=== PATIENT | female | born 1935 | race Two or more races ===

== ENCOUNTER 2019-10-04 20:57 | Inpatient (IN) | payer MEDICARE, OTHER ==
[~2019-10-04] VITALS: Ht 157.5 cm; Wt 77.1 kg
--- NOTE | 2019-10-04 20:57 | NUR ---
PT [id number] FROM HOME C/O FEVER AND DRY COUGH X2 DAYS, GEN WEAKNESS, PT IS AAOX3 [place] IRISH SPEAKING ONLY, HOOKED TO WOOD CABINET FINISHER, KEPT RESTED AND COMFORTABLE, WILL CONTINUE TO MONITOR.
--- NOTE | 2019-10-04 21:00 | NUR ---
SEEN AND EXAMINED BY
--- NOTE | 2019-10-04 21:05 | NUR ---
IV LINE ESTABLISHED BLOOD DRAWN AND SENT TO LAB.
[2019-10-04] MEDS ORDERED: VANCOMYCIN 1 GM VIAL ONE (21:15)
[2019-10-04] MEDS ORDERED: PIPERACILLIN /TAZOBACTAM 3.375 G VIAL IV ONE (21:16)
[2019-10-04] MEDS ORDERED: ACETAMINOPHEN ES 500 MG TABLET ONE (21:16)
--- NOTE | 2019-10-04 21:22 | NUR ---
ALEX (DAUGHTER) CONTACT INFORMATION: [phone]
[2019-10-04 21:24] LABS: BASOPHILS % (AUTO) 0.2 % (0.0-2.0); HEMATOCRIT 34 % (33-45); HEMOGLOBIN 11.1 g/dL (11.5-14.8); LYMPHOCYTES # (AUTO) 1.4 /CMM (0.8-4.8); LYMPHOCYTES % (AUTO) 5.8 % (20.0-44.0); MEAN CORPUSCULAR HGB CONC 32 g/dl (31.0-36.0); MEAN CORPUSCULAR VOLUME 91 fL (82-100); MONOCYTES # (AUTO) 1.8 /CMM (0.1-1.30); MONOCYTES % (AUTO) 7.4 % (2.0-12.0); NEUTROPHILS # (AUTO) 20.8 /CMM (1.8-8.9); NEUTROPHILS % (AUTO) 86.6 % (43.0-81.0); PLATELET COUNT (AUTO) 546 /CMM (150-450); RED BLOOD CELL COUNT(AUTO) 3.78 MIL/uL (4.0-5.2)
[2019-10-04] MEDS ORDERED: ACETAMINOPHEN ES 500 MG TABLET PO ONE (21:30)
[2019-10-04] MEDS ORDERED: PIPERACILLIN /TAZOBACTAM 3.375 G in IV D5W 50 ML IV ONE (21:30)
[2019-10-04] MEDS ORDERED: VANCOMYCIN 1 GM in IV D5W 250 ML IV ONE (21:30)
[2019-10-04] MEDS ORDERED: IV NS 0.9% 1,000 ML BAG IV ONE (21:30)
--- NOTE | 2019-10-04 21:37 | NUR ---
RSV AND NCOV TEST OBTAINED AND SENT TO LAB.
--- NOTE | 2019-10-04 21:37 | NUR ---
Flu swab sample sent to lab.
[2019-10-04 21:40] LABS: MAGNESIUM 1.7 mg/dL (1.8-2.4); PHOSPHORUS 2.2 mg/dL (2.5-4.9)
[2019-10-04 21:43] LABS: ALANINE AMINOTRANSFERASE 16 U/L (12-78); ALBUMIN 1.7 g/dL (3.4-5.0); ALKALINE PHOSPHATASE 100 U/L (46-116); ASPARTATE AMINOTRANSFERASE 20 U/L (15-37); BILIRUBIN,DIRECT 0.1 mg/dL (0.0-0.2); BILIRUBIN,TOTAL 0.4 mg/dL (0.2-1.0); CALCIUM, SERUM 7.6 mg/dL (8.5-10.1); CARBON DIOXIDE 22 mmol/L (21-32); CHLORIDE 102 mmol/L (98-107); CREATININE 1.4 mg/dL (0.6-1.3); GLUCOSE 118 mg/dL (74-106); POTASSIUM 3.2 mmol/L (3.5-5.1); SODIUM SERUM 135 mmol/L (136-145); TOTAL PROTEIN, SERUM 5.1 g/dL (6.4-8.2); UREA NITROGEN, BLOOD 20 mg/dL (7-18)
--- NOTE | 2019-10-04 21:47 | NUR ---
xray at [facility]
[2019-10-04 21:51] LABS: APPEARANCE,URINE CLEAR (CLEAR); BILIRUBIN,URINE NEGATIVE (NEGATIVE); BLOOD, URINE NEGATIVE Ery/uL (NEGATIVE); COLOR,URINE YELLOW (YELLOW); KETONES,URINE NEGATIVE (NEGATIVE); LEUKOCYTE ESTERASE ,URINE NEGATIVE (NEGATIVE); NITRITE, URINE NEGATIVE (NEGATIVE); PH,URINE 5.5 (5.0-8.0); PROTEIN,URINE 30 mg/dl (NEGATIVE); UGLUCOSE NEGATIVE (NEGATIVE)
[2019-10-04] MEDS ORDERED: IOHEXOL-300 100 ML VIAL IV ONE (21:56)
[2019-10-04 22:02] LABS: BACTERIA,URINE None seen /HPF (None Seen); MUCUS,URINE RARE /LPF (None Seen); RBC,URINE 0-2 /HPF (0-2); SQUAMOUS EPITHELIAL CELL,UR 0-2 /HPF (None Seen); WBC,URINE 0-2 /HPF (0-3)
--- NOTE | 2019-10-04 22:03 | NUR ---
PATIENT TAKEN TO CT.
--- NOTE | 2019-10-04 22:07 | NUR ---
ROOM GIVEN 115-2
--- NOTE | 2019-10-04 22:28 | NUR ---
RETURNED FROM CT.
--- NOTE | 2019-10-04 22:53 | NUR ---
REPORT GIVEN TO ED WONG FOR RUDDY.
--- NOTE | 2019-10-04 23:10 | NUR ---
S/W GRANDSON. INFORMED HIM PT IS BEING PREPPED FOR TRANSFER TO [facility] AND TO CALL MAIN LINE IN 45 MIN TO BE DIRECTED TO UNIT.
--- NOTE | 2019-10-04 23:30 | NUR ---
TELE/ RN ADMITTING NOTES PATIENT ARRIVED VIA GURNEY, ACCOMPANIED BY ER STAFF; PATIENT AWAKE, A/O X2-3, FRISIAN SPEAKING; BREATHING EVEN AND UNLABORED; NO SOB NOTED; PATIENT IS NOT COUGHING AT THE MOMENT; PATIENT TOLERATING ROOM AIR WELL; R AC #18 INTACT AND PATENT; FLUSHING WELL, NO REDNESS OR INFILTRATION NOTED; UNABLE TO DO SKIN ASSESSMENT; COLLECTED MEDICAL HX VIA PHONE CALL FROM CELESTE JOHNSON. SAFETY PRECAUTIONS IMPLEMENTED; BED LOCKED IN LOW POSITION, BILATERAL UPPER SIDE RAILS X2; CALL LIGHT WITHIN REACH, WILL CONTINUE TO MONITOR Addendum: 10/04/19 at 2357 by AMILCAR PAGAN RN TELE MONITOR ATTACHED READING SINUS TACH HR RANGES FROM 111 - 135S; WILL CONTINUE TO MONITOR
[2019-10-04 23:35] VITALS: BP 136/82
[2019-10-05] VITALS (7 sets, daily range): BP systolic 100–136; BP diastolic 57–82
[2019-10-05] MEDS ORDERED: ONDANSETRON HCL/PF 4 MG/2 ML VIAL IVP PRN
[2019-10-05] MEDS ORDERED: Z GUARD REMEDY 2 OZ OINT TP PRN
[2019-10-05] MEDS ORDERED: HYDROCODONE/APAP 5/325MG 1 EACH TABLET PO PRN
[2019-10-05] MEDS ORDERED: MAG HYDROX/AL HYDROX/SIMETH 30 ML UDC PO PRN
[2019-10-05] MEDS ORDERED: MAGNESIUM HYDROXIDE 30 ML UDC PO PRN
[2019-10-05] MEDS ORDERED: ZOLPIDEM TARTRATE 5 MG TABLET PO PRN
[2019-10-05] MEDS ORDERED: ACETAMINOPHEN 325 MG TABLET PO PRN
--- NOTE | 2019-10-05 00:35 | NUR ---
TELE/RN NOTES AZITHROMYCIN IV NOT YET AVAILABLE; AWAITING FOR MEDICATION TO BE READY; ORDER FAXED TO NURSING SUP.
[2019-10-05] MEDS ORDERED: AZITHROMYCIN 500 MG VIAL ONE (01:32)
[2019-10-05] MEDS: AZITHROMYCIN 500 MG in IV D5W 250 ML IV SCH (01:40)
[2019-10-05] MEDS ORDERED: POTASSIUM CHLORIDE 10 MEQ/50 ML PREMIXED IVPB FOR PERIPHERAL LINE IV ONE (02:30)
[2019-10-05] MEDS ORDERED: ZOSYN IVPB 3.375 G in IV D5W 50ml IV ONE (03:15)
[2019-10-05] MEDS ORDERED: PIPERACILLIN /TAZOBACTAM 3.375 G VIAL IV ONE (03:40)
--- NOTE | 2019-10-05 04:20 | NUR ---
TELE/RN NOTES ZOSYN COMPLETED; PATIENT TOLERATED ZOSYN WELL; SECOND BAG OF KCL RUNNING;
[2019-10-05] MEDS ORDERED: POTASSIUM CL. PREMIX PERIPHER. 50 ML IV SCH ×2 (04:30→10:30)
--- NOTE | 2019-10-05 05:58 | NUR ---
EDITORIAL WRITER NOTES KCL IV STILL RUNNING; AWAITING COMPLETION PRIOR TO ADMINISTRATION OF FLAGYL; WILL CONTACT PHARMACY TO INPUT ORDER FOR LATER ADMINISTRATION; WILL CONTINUE TO MONITOR
--- NOTE | 2019-10-05 06:23 | NUR ---
NETWORK ENGINEERING ADVISOR CLOSING NOTES PATIENT SLEEPING IN BED COMFORTABLY; A/O X2-3, GERMAN SPEAKING; TOLERATING ROOM AIR WELL, BREATHING EVEN AND UNLABORED, NO SOB OR ACUTE RESPIRATORY DISTRESS NOTED AT THIS TIME; ISOLATION PRECAUTIONS MAINTAINED; TELE MONITOR ATTACHED; READS STACH WITH PACS, HR 106BPM; R AC #18 INTACT AND PATENT; FLUSHING WELL; NO S/S OF REDNESS OR INFILTRATION NOTED; KCL REPLACEMENT STILL INFUSING; FLAGYL DELAYED, WILL ENDORSE TO ONCOMING SHIFT. ALL NEEDS RENDERED; SAFETY PRECAUTIONS IN PLACE; BED LOCKED IN LOW POSITION; BILATERAL UPPER SIDE RAILS X2; CALL LIGHT WITHIN REACH; WILL ENDORSE RUDDY TO ONCOMING SHIFT
--- NOTE | 2019-10-05 06:24 | NUR ---
INFANT NANNY/ CLOSING NOTES NPO STATUS MAINTAINED
[2019-10-05 06:42] LABS: CALCIUM, SERUM 7.2 mg/dL (8.5-10.1); CARBON DIOXIDE 21 mmol/L (21-32); CHLORIDE 104 mmol/L (98-107); CREATININE 1.6 mg/dL (0.6-1.3); GLUCOSE 118 mg/dL (74-106); POTASSIUM 3.4 mmol/L (3.5-5.1); SODIUM SERUM 135 mmol/L (136-145); UREA NITROGEN, BLOOD 19 mg/dL (7-18)
[2019-10-05 06:52] LABS: ALANINE AMINOTRANSFERASE 11 U/L (12-78); ALBUMIN 1.5 g/dL (3.4-5.0); ALKALINE PHOSPHATASE 91 U/L (46-116); ASPARTATE AMINOTRANSFERASE 14 U/L (15-37); BILIRUBIN,TOTAL 0.4 mg/dL (0.2-1.0); MAGNESIUM 1.5 mg/dL (1.8-2.4); PHOSPHORUS 2.9 mg/dL (2.5-4.9); TOTAL PROTEIN, SERUM 4.5 g/dL (6.4-8.2)
[2019-10-05 07:02] LABS: CHOLESTEROL 72 mg/dL (<200); CREATINE KINASE, TOTAL 39 U/L (26-192); FERRITIN 171 ng/mL (8-388); HDL CHOLESTEROL 17 mg/dL (40-60); TRIGLYCERIDES 69 mg/dL (30-150)
[2019-10-05 07:20] LABS: LDL 45 mg/dL (0-99)
--- NOTE | 2019-10-05 07:20 | NUR ---
RN NOTES RECEIVED PATIENT IN BED RESTING COMFORTABLY IN MODERATE HIGH BACK REST. A/O X 2-3, BULGARIAN SPEAKING, NO SIGNS OF DISTRESS NOTED AT THIS TIME. IV ACCESS ON RAC #18, SL, PATENT AND INTACT, NPO FOR POSSIBLE ERCP. ON ISOLATION PRECAUTION TO R/O COVID, SAFETY MEASURES IN PLACE, BED IN LOWEST LOCKED POSITION WITH SIDE RAILS UP X2. CALL LIGHT WITHIN REACH. WILL CONTINUE TO MONITOR.
[2019-10-05] MEDS: METRONIDAZOLE 500MG/ NS 100ML 500 MG in PREMIX 1 EA IV SCH ×3 (07:42→19:03)
--- NOTE | 2019-10-05 08:34 | NUR ---
RT PT REFUSED ABG NO SOB SP02 > 94% RN AWARE ASK IRISH SPEAKING TO TRANSLATE
[2019-10-05] MEDS ORDERED: IV NS 0.9% 1,000 ML IV PRN (08:36)
[2019-10-05] MEDS: Magnesium 1GM/D5W 100ML PREMIX 100 ML IV SCH ×2 (09:19→15:13)
[2019-10-05] MEDS: ENOXAPARIN SODIUM 30 MG/0.3 ML DISP.SYRIN SQ SCH (09:23)
[2019-10-05] MEDS ORDERED: REPA2TAB10 PO (11:25)
[2019-10-05] MEDS ORDERED: PROP10TA68 PO (11:25)
[2019-10-05] MEDS ORDERED: HYDR200T4 PO (11:25)
[2019-10-05] MEDS ORDERED: METF-835 PO (11:25)
[2019-10-05] MEDS ORDERED: GABA-532 PO (11:25)
[2019-10-05] MEDS ORDERED: SERT25TA5 PO (11:25)
[2019-10-05] MEDS ORDERED: OXYC1TAB8 PO (11:25)
[2019-10-05] MEDS ORDERED: MEGE40TA5 PO (11:25)
[2019-10-05] MEDS ORDERED: VALSARTAN-HCTZ PO (11:25)
[2019-10-05] MEDS ORDERED: ESOM40CA52 PO (11:25)
[2019-10-05] MEDS: PIPERACILLIN /TAZOBACTAM 3.375 G in IV D5W 50 ML IV SCH ×4 (11:33→23:19)
--- NOTE | 2019-10-05 11:53 | NUR ---
RN NOTES PATIENT IS CONFUSED, PATIENT PULLED OUT HER IV. WILL TRY TO RE INSERT AGAIN. WILL CONTINUE TO MONITOR.
--- NOTE | 2019-10-05 13:27 | NUR ---
RN NOTES VANCOMYCIN ORAL MINNIE, NOT AVAILABLE, CALLED PHARMACY AND THEY SAID THEY WILL SEND IT IN FEW MINUTES, WILL F/U.
[2019-10-05] MEDS: VANCOMYCIN HCL 125 MG/2.5 ML ORAL.SUSP PO SCH ×3 (13:54→23:19)
--- NOTE | 2019-10-05 17:47 | NUR ---
RN NOTES PATIENT PULLED HER IV AGAIN, REMOVED THE LEADS FOR TELE MONITOR, REFUSED TO BE APPLIED AGAIN, MD MADE AWARE. WILL CONTINUE TO MONITOR.
--- NOTE | 2019-10-05 17:50 | NUR ---
RN NOTES SPOKE TO THE DAUGHTER COUPLE OF TIMES REGARDING THE PATIENT, THAT PATIENT IS NON-COMPLIANT AND KEEP REMOVING THE IV AND TELE MONITOR. DAUGHTER REFUSED ANY TYPE OF RESTRAINT. MD MADE AWARE. WILL CONTINUE TO MONITOR.
--- NOTE | 2019-10-05 18:39 | NUR ---
RN NOTES PATIENT IN BED RESTING COMFORTABLY IN MODERATE HIGH BACK REST. A/O X 2, CONFUSED, DIVEHI SPEAKING, IV ACCESS ON LEFT AC #20, SL, PATENT AND INTACT. ON ISOLATION PRECAUTION TO R/O COVID AND C.DIFF, PATIENT REMOVED HER TELE MONITOR, REFUSED TO BE PUT BACK. FAMILY AWARE. MD MADE AWARE, SAFETY MEASURES IN PLACE, BED IN LOWEST LOCKED POSITION WITH SIDE RAILS UP X2. CALL LIGHT WITHIN REACH. WILL ENDORSE TO DYE WEIGHER HELPER NURSE FOR RUDDY.
--- NOTE | 2019-10-05 19:05 | NUR ---
CLARIFICATION PATIENT IS NPO EXCEPT MEDS, NO FLUIDS GIVEN
--- NOTE | 2019-10-05 19:05 | NUR ---
RADIOLOGIC TECHNOLOGIST MAMMOGRAM OPENING NOTES RECEIVED PATIENT IN BED AWAKE ALERT AND ORIENTED X 1-2, NOTED WITH FORGETFULNESS, CONFUSION, REMOVING [employer] AIRSPACE OFFICER AND ATTEMPTING TO REMOVE IV SITE. IV SITE TO LEFT AC #20G INTACT AND PATENT AT THIS TIME, PATIENT HAS EPISODES OF ATTEMPTING TO GET OUT OF BED DESPITE REDIRECTION, BED ALARM IN PLACE, LOW BED AND LOCKED, SAFETY PRECAUTIONS IN PLACE, PER FAMILY ALEX DAUGHTER DOES NOT WANT TO TRY RESTRAINTS. PT IS FALL RISK. SAFETY PRECAUTIONS RENDERED.ORIENTED TO STAFF AND CALL LIGHT AND KEPT WITHIN REACH, FLUIDS AND PERINEAL CARE PROVIDED, REMAINS CLEAN. RESPIRATIONS EVEN AND UNLABORED WITH EQUAL RISE AND FALL OF CHEST, REMAINS FREE OF PAIN OR DISCOMFORT AT THIS TIME, ALL NEEDS ATTENDED , PATIENT IS DROPLET PRECAUTIONS FOR POSSIBLE COVID. WILL CONTINUE TO MONITOR.
--- NOTE | 2019-10-05 19:10 | NUR ---
CARDIAC TELE MONITOR AT TIMES SR AND ST HR 95
[2019-10-06] VITALS: BP 137/67
[2019-10-06] MEDS: METRONIDAZOLE 500MG/ NS 100ML 500 MG in PREMIX 1 EA IV SCH ×3 (00:17→12:50)
[2019-10-06] MEDS: AZITHROMYCIN 500 MG in IV D5W 250 ML IV SCH (01:46)
[2019-10-06 04:00] VITALS: BP 112/58
[2019-10-06] MEDS: PIPERACILLIN /TAZOBACTAM 3.375 G in IV D5W 50 ML IV SCH ×2 (05:39→11:36)
[2019-10-06] MEDS: VANCOMYCIN HCL 125 MG/2.5 ML ORAL.SUSP PO SCH ×2 (05:40→11:36)
[2019-10-06 06:33] LABS: BASOPHILS % (AUTO) 0.2 % (0.0-2.0); HEMATOCRIT 31 % (33-45); LYMPHOCYTES # (AUTO) 0.8 /CMM (0.8-4.8); LYMPHOCYTES % (AUTO) 6.3 % (20.0-44.0); MEAN CORPUSCULAR HGB CONC 33 g/dl (31.0-36.0); MEAN CORPUSCULAR VOLUME 89 fL (82-100); MONOCYTES # (AUTO) 0.7 /CMM (0.1-1.30); MONOCYTES % (AUTO) 5.2 % (2.0-12.0); NEUTROPHILS # (AUTO) 11.7 /CMM (1.8-8.9); NEUTROPHILS % (AUTO) 88.3 % (43.0-81.0); PLATELET COUNT (AUTO) 476 /CMM (150-450); RED BLOOD CELL COUNT(AUTO) 3.43 MIL/uL (4.0-5.2); WHITE BLOOD COUNT (AUTO) 13.2 K/uL (4.3-11.0)
--- NOTE | 2019-10-06 06:36 | NUR ---
SELLING MANAGER CLOSING NOTES PATIENT IN BED AWAKE ALERT AND ORIENTED X 1-2, NOTED WITH FORGETFULNESS, CONFUSION, REMOVING RESUME SPECIALIST AND ATTEMPTING TO REMOVE IV SITE THROUGHOUT SHIFT, REMOVED X 4 TIMES. IV SITE TO RIGHT FA #22G INTACT AND PATENT AT THIS TIME, PATIENT HAD EPISODES OF ATTEMPTING TO GET OUT OF BED DESPITE REDIRECTION, BED ALARM IN PLACE, LOW BED AND LOCKED, SAFETY PRECAUTIONS IN PLACE, PER FAMILY ALEX DAUGHTER DOES NOT WANT TO TRY RESTRAINTS. PT IS FALL RISK AND REMOVING MEDICAL TUBING. SAFETY PRECAUTIONS RENDERED.CALL LIGHT KEPT WITHIN REACH, PERINEAL CARE PROVIDED, REMAINS CLEAN. RESPIRATIONS EVEN AND UNLABORED WITH EQUAL RISE AND FALL OF CHEST, REMAINS FREE OF PAIN OR DISCOMFORT AT THIS TIME, BEDSIDE COMMODE PROVIDED AND HAD X 1 BM, ALL NEEDS ATTENDED , PATIENT IS DROPLET PRECAUTIONS FOR POSSIBLE COVID. WILL CONTINUE TO MONITOR AND ENDORSE TO NEX SHIFT REMAINS AFEBRILE, NO SOB. NO FURTHER CHANGES NOTED, VS WNL.
--- NOTE | 2019-10-06 06:40 | NUR ---
CARDIAC TELE MONITOR PLACED SR 84
[2019-10-06 06:49] LABS: ALANINE AMINOTRANSFERASE 12 U/L (12-78); ALKALINE PHOSPHATASE 86 U/L (46-116); ASPARTATE AMINOTRANSFERASE 17 U/L (15-37); BILIRUBIN,TOTAL 0.3 mg/dL (0.2-1.0); CALCIUM, SERUM 7.9 mg/dL (8.5-10.1); CARBON DIOXIDE 21 mmol/L (21-32); CHLORIDE 106 mmol/L (98-107); CREATININE 1.4 mg/dL (0.6-1.3); GLUCOSE 98 mg/dL (74-106); MAGNESIUM 2.3 mg/dL (1.8-2.4); PHOSPHORUS 2.9 mg/dL (2.5-4.9); POTASSIUM 3.3 mmol/L (3.5-5.1); SODIUM SERUM 138 mmol/L (136-145); TOTAL PROTEIN, SERUM 4.5 g/dL (6.4-8.2); UREA NITROGEN, BLOOD 19 mg/dL (7-18)
[2019-10-06 06:52] LABS: ALBUMIN 1.5 g/dL (3.4-5.0)
[2019-10-06 06:55] LABS: FERRITIN 188 ng/mL (8-388)
--- NOTE | 2019-10-06 07:36 | NUR ---
RN OPENING NOTE RECEIVED PATIENT IN BED, A/O X2, RESTLESS TRYING TO GET OUT OF BED. PATIENT IS CONFUSED, PER PM NURSE PT PULLED OUT IV DURING THE NIGHT AND KEEPS TRYING TO GET OUT OF BED. FREQUENT REORIENTATION REQUIRED. IV #22 ON RIGHT FOREARM IS INTACT, PATENT AND FLUSHED WELL. NS RUNNING ORDERED. BED IS LOCKED, LOWERED, AND ALARM SET TO HIGHEST SENSITIVITY. FAMILY IS REFUSING TO TRY RESTRAINING THE PATIENT FOR PT SAFETY. SAFETY MAINTAINED, CALL LIGHT WITHIN REACH, WILL CONTINUE TO MONITOR CLOSELY.
[2019-10-06 08:00] VITALS: BP 128/76
[2019-10-06] MEDS: ENOXAPARIN SODIUM 30 MG/0.3 ML DISP.SYRIN SQ SCH (09:00)
[2019-10-06] MEDS ORDERED: POTASSIUM CHLORIDE 20 MEQ TAB.PRT.SR PO SCH (10:00)
--- NOTE | 2019-10-06 10:00 | NUR ---
RN NOTE PT IN STABLE CONDITION. O2 SATURATION AT 100%. PATIENT SAFETY MAINTAINED, CALL LIGHT WITHIN REACH, CONTINUING CARE.
[2019-10-06] MEDS ORDERED: POTASSIUM CHLORIDE 20 MEQ TAB.PRT.SR PO ONE (11:00)
[2019-10-06 11:48] VITALS: BP 128/76
[2019-10-06 12:00] VITALS: BP_SYST 128; BP_SYST 130; BP_DIAS 72; BP_DIAS 73
--- NOTE | 2019-10-06 12:00 | NUR ---
RN NOTE PT IN STABLE CONDITION. O2 SATURATION AT 98%. PATIENT SAFETY MAINTAINED, CALL LIGHT WITHIN REACH, CONTINUING CARE.
[2019-10-06] MEDS ORDERED: VANC125C11 PO (12:43)
[2019-10-06] MEDS ORDERED: METR500P3 IV (12:43)
--- NOTE | 2019-10-06 14:00 | NUR ---
RN NOTE PT IN STABLE CONDITION. O2 SATURATION AT 100%. PATIENT SAFETY MAINTAINED, CALL LIGHT WITHIN REACH, CONTINUING CARE. C DIFF RESULTS CAME BACK POSITIVE. PAGED MD AVILA, NO CALL BACK. DISCHARGE ORDERS ARE IN. WILL CONTINUE TO MONITOR.
--- NOTE | 2019-10-06 16:03 | NUR ---
RN NOTE PT IN STABLE CONDITION. O2 SATURATION AT 100%. PATIENT SAFETY MAINTAINED, CALL LIGHT WITHIN REACH, CONTINUING CARE. DISCHARGE PAPERWORK COMPLETE, FAMILY IS AWARE, [facility] SCHEDULED AT 1630.
--- NOTE | 2019-10-06 17:00 | NUR ---
RN NOTE PATIENT IN STABLE CONDITION, DISCHARGED HOME, PICKED UP VIA AMBULANCE, REPORT GIVEN TO PARAMEDICS. FAMILY IS AWARE THAT THE PATIENT IS ON THE WAY. DISCHARGE INSTRUCTIONS WERE PROVIDED TO THE FAMILY, DAUGHTER KAITLIN. PATIENT SAFETY WAS MAINTAINED, ISOLATION WAS OBSERVED, IALL SCHEDULED MEDICATIONS ADMINISTERED, NEW IV 20 GAUGE WAS PUT IN PRIOR TO DISCHARGE FOR HOME HEALTH NURSE TO ADMINISTER ANTIBIOTICS.
== END 2019-10-06 17:15 | disposition home health service (06) | DRG 371 ==
LOC: ER 20:58 → TELE1 22:11
PROVIDERS: ADMIT Nurse Practitioner Acute Care; ATTEND Family Medicine
DX: A04.72 Enterocolitis due to Clostridium difficile, not specified as recurrent (principal); J12.9 Viral pneumonia, unspecified; E43 Unspecified severe protein-calorie malnutrition; N17.0 Acute kidney failure with tubular necrosis; M80.88XA Other osteoporosis with current pathological fracture, vertebra(e), initial encounter for fracture; F32.9 Major depressive disorder, single episode, unspecified; I10 Essential (primary) hypertension; F03.90 Unspecified dementia, unspecified severity, without behavioral disturbance, psychotic disturbance, mood disturbance, and anxiety; D63.8 Anemia in other chronic diseases classified elsewhere; G89.29 Other chronic pain; E83.42 Hypomagnesemia; I25.10 Atherosclerotic heart disease of native coronary artery without angina pectoris; E87.6 Hypokalemia; E86.1 Hypovolemia; M48.061 Spinal stenosis, lumbar region without neurogenic claudication; Z68.31 Body mass index [BMI] 31.0-31.9, adult; R79.89 Other specified abnormal findings of blood chemistry; K80.20 Calculus of gallbladder without cholecystitis without obstruction; D72.829 Elevated white blood cell count, unspecified
CPT/HCPCS: 36415; 71045-TC; 71260-TC; 72132-TC; 76705-TC; 80048-TC; 80053-TC; 80061-TC; 80076-TC; 81000-TC; 82550-TC; 82728-TC; 83605-TC; 83615-TC; 83735-TC; 84100-TC; 84484-TC; 85025-TC; 85652-TC; 85730-TC; 86140-TC; 86803; 87040-TC; 87081-TC; 87086-TC; 87806; 92521; 93307-TC; A4216; G0378; J0456; J2543; J3370; J3475; J3480; J3490; J7030; J7040; J7060; Q9967

== ENCOUNTER 2020-04-09 21:12 | Inpatient (IN) | payer MEDICARE, OTHER ==
[~2020-04-09] VITALS: Ht 160 cm; Wt 54.9 kg
[2020-04-09 00:30] VITALS: BP 130/78
[~2020-04-09 21:12] MED LIST: ESOM40CA52 PO; GABA-532 PO; HYDR200T4 PO; MEGE40TA5 PO; METF-835 PO; METR500P3 IV; OXYC1TAB8 PO; PROP10TA68 PO; REPA2TAB10 PO; SERT25TA5 PO; VALSARTAN-HCTZ PO; VANC125C11 PO
--- NOTE | 2020-04-09 21:15 | NUR ---
PT BIBRA FROM HOME. PER RA, PT MORE ALTERED THAN NORMAL, HX OF DEMENTIA. PT AWAKE, CONFUSED. VITAL SIGNS STABLE. RESPIRATIONS EVEN AND UNLABORED. SKIN INTACT. NO ACUTE DISTRESS NOTED AT THIS TIME. PLACED IN GOWN AND ON CONTINUOUS AUTOMATIC FABRIC CUTTER AND PULSE OX, WILL CONTINUE TO MONITOR
[2020-04-09] MEDS ORDERED: LORAZEPAM INJ 2 MG/ML VIAL ONE (21:23)
--- NOTE | 2020-04-09 21:26 | NUR ---
IV INITIATED RAC 20G. LABS DRAWN FROM SITE. GRADER MEAT AT BEDSIDE FOR COLLECTION. IV INTACT AND PATENT, PLACED ON SALINE LOCK
[2020-04-09] MEDS ORDERED: LORAZEPAM INJ 2 MG/ML VIAL IV ONE (21:30)
--- NOTE | 2020-04-09 21:30 | NUR ---
UNABLE TO OBTAIN EKG DUE TO PATIENT MOVING AND AMS. MADE AWARE
--- NOTE | 2020-04-09 21:37 | NUR ---
URINE COLLECTED AND SENT TO LAB
--- NOTE | 2020-04-09 21:37 | NUR ---
gail salazar [phone] or [phone]
[2020-04-09] MEDS ORDERED: IV NS 0.9% 1,000 ML BAG IV ONE (22:00)
[2020-04-09 22:02] LABS: BASOPHILS # (AUTO) 0.1 /CMM (0.0-0.2); HEMATOCRIT 37 % (33-45); HEMOGLOBIN 12.3 g/dL (11.5-14.8); LYMPHOCYTES # (AUTO) 3.5 /CMM (0.8-4.8); LYMPHOCYTES % (AUTO) 47.2 % (20.0-44.0); MEAN CORPUSCULAR HGB CONC 33 g/dl (31.0-36.0); MEAN CORPUSCULAR VOLUME 94 fL (82-100); MONOCYTES # (AUTO) 0.5 /CMM (0.1-1.30); MONOCYTES % (AUTO) 6.9 % (2.0-12.0); NEUTROPHILS # (AUTO) 3.3 /CMM (1.8-8.9); NEUTROPHILS % (AUTO) 44.9 % (43.0-81.0); PLATELET COUNT (AUTO) 326 /CMM (150-450); RED BLOOD CELL COUNT(AUTO) 3.93 MIL/uL (4.0-5.2); WHITE BLOOD COUNT (AUTO) 7.4 K/uL (4.3-11.0)
--- NOTE | 2020-04-09 22:03 | NUR ---
RADIOLOGY AT BEDSIDE FOR CXR
[2020-04-09 22:05] LABS: BILIRUBIN,URINE SMALL (NEGATIVE); BLOOD, URINE NEGATIVE Ery/uL (NEGATIVE); COLOR,URINE YELLOW (YELLOW); KETONES,URINE NEGATIVE (NEGATIVE); LEUKOCYTE ESTERASE ,URINE MODERATE (NEGATIVE); NITRITE, URINE NEGATIVE (NEGATIVE); PROTEIN,URINE NEGATIVE (NEGATIVE); UGLUCOSE NEGATIVE (NEGATIVE); UROBILINOGEN,URINE 0.2 EU/dL (0.2)
[2020-04-09 22:11] LABS: ACETAMINOPHEN 3 ug/ml (10-30); ALANINE AMINOTRANSFERASE 18 U/L (12-78); ALBUMIN 2.7 g/dL (3.4-5.0); ALCOHOL, BLOOD < 3 mg/dL (0-0); ALKALINE PHOSPHATASE 117 U/L (46-116); ASPARTATE AMINOTRANSFERASE 31 U/L (15-37); BILIRUBIN,DIRECT 0.2 mg/dL (0.0-0.2); BILIRUBIN,TOTAL 0.5 mg/dL (0.2-1.0); CALCIUM, SERUM 8.9 mg/dL (8.5-10.1); CARBON DIOXIDE 26 mmol/L (21-32); CHLORIDE 103 mmol/L (98-107); CREATININE 1.3 mg/dL (0.6-1.3); GLUCOSE 96 mg/dL (74-106); POTASSIUM 3.8 mmol/L (3.5-5.1); SODIUM SERUM 138 mmol/L (136-145); TOTAL PROTEIN, SERUM 6.4 g/dL (6.4-8.2); UREA NITROGEN, BLOOD 14 mg/dL (7-18)
[2020-04-09] MEDS ORDERED: HALOPERIDOL LACTATE INJ 5 MG/ML VIAL ONE (22:19)
--- NOTE | 2020-04-09 22:25 | NUR ---
COVID SWAB COLLECTED, CALLED LAB FOR TITLE AGENT
[2020-04-09 22:29] LABS: SALICYLATE < 2.8 mg/dL (2.8-20.0)
[2020-04-09] MEDS ORDERED: HALOPERIDOL LACTATE INJ 5 MG/ML VIAL IM ONE (22:30)
[2020-04-09 22:55] LABS: APPEARANCE,URINE SLIGHTLY CLOUDY (CLEAR)
[2020-04-09 22:57] LABS: BACTERIA,URINE Many /HPF (None Seen); RBC,URINE 0-2 /HPF (0-2); SQUAMOUS EPITHELIAL CELL,UR Few /HPF (None Seen)
--- NOTE | 2020-04-09 22:58 | NUR ---
PER DR. LEIVA, BLOOD CULTURES NOT NEEDED PRIOR TO ROCEPHIN ADMINISTRATION. WILL MEDICATE PT PER MD ORDER.
[2020-04-09] MEDS ORDERED: CEFTRIAXONE 1GM BAG (ER ONLY) 50 ML IV ONE (22:59)
[2020-04-09] MEDS ORDERED: CEFTRIAXONE 1GM BAG (ER ONLY) 1 GM/50 ML PIGGYBACK IV ONE (23:00)
--- NOTE | 2020-04-09 23:18 | NUR ---
DR. RODRIGUEZ AT BEDSIDE FOR EVALUATION
[2020-04-09] MEDS ORDERED: oxyCODONE/APAP (5/325 MG) 1 UDTAB TABLET PO PRN (23:30)
[2020-04-10] MEDS ORDERED: ACETAMINOPHEN 325 MG TABLET PO PRN
[2020-04-10] MEDS ORDERED: Z GUARD REMEDY 2 OZ OINT TP PRN
[2020-04-10] MEDS ORDERED: MAGNESIUM HYDROXIDE 30 ML UDC PO PRN
[2020-04-10] MEDS ORDERED: ONDANSETRON HCL/PF 4 MG/2 ML VIAL IVP PRN
[2020-04-10] MEDS ORDERED: MAG HYDROX/AL HYDROX/SIMETH 30 ML UDC PO PRN
--- NOTE | 2020-04-10 00:22 | NUR ---
REPORT GIVEN TO MARVIN ALTAMIRANO FOR RUDDY
--- NOTE | 2020-04-10 00:25 | NUR ---
GUTTER HANGER NOTES Received patient from ER via [facility] accompanied by ER staff. Transferred to bed comfortably. Admission routine done. Skin assessment done, intact skin noted. Admission orders noted and carried out. Kept on bed clean, dry and comfortable. Spoke to daughter Yolanda. Will continue to monitor accordingly.
--- NOTE | 2020-04-10 00:36 | NUR ---
PT TRANSFERRED TO MS BED [facility]IA [facility] IN STABLE CONDITION
[2020-04-10] MEDS: IV NS 0.9% 1,000 ML IV PRN ×2 (00:54→22:43)
[2020-04-10] MEDS: ENOXAPARIN SODIUM 30 MG/0.3 ML DISP.SYRIN SQ SCH ×2 (00:56→23:22)
[2020-04-10 03:20] VITALS: BP 130/78
--- NOTE | 2020-04-10 06:22 | NUR ---
RN CLOSING NOTES Pt asleep on bed. No new complaints/unusualities noted. Due meds given as ordered. All nursing needs attended. Kept on bed clean, dry and comfortable. Endorsed.
[2020-04-10 08:00] VITALS: BP 132/82
--- NOTE | 2020-04-10 08:00 | NUR ---
RN Opening Note Patient received in bed, sleeping, able to responds all stimuli. Does no appears pain or discomfort, skin is worm to touch, keep clean/dry, intact IV site on right AC 20 g with running NS at 75LPM. Respiratory even and unlabored on room air, no distress observed. Keep locked bed with lowest position and elevated HOB for ensure airway and aspiration precaution. Call light within reach, will continue to monitor.
[2020-04-10 08:28] LABS: BASOPHILS % (AUTO) 0.8 % (0.0-2.0); EOSINOPHILS % (AUTO) 0.1 % (0.0-6.0); HEMATOCRIT 31 % (33-45); HEMOGLOBIN 10.1 g/dL (11.5-14.8); LYMPHOCYTES # (AUTO) 2.1 /CMM (0.8-4.8); LYMPHOCYTES % (AUTO) 43.6 % (20.0-44.0); MEAN CORPUSCULAR HGB CONC 33 g/dl (31.0-36.0); MEAN CORPUSCULAR VOLUME 96 fL (82-100); MONOCYTES # (AUTO) 0.4 /CMM (0.1-1.30); MONOCYTES % (AUTO) 7.8 % (2.0-12.0); NEUTROPHILS # (AUTO) 2.3 /CMM (1.8-8.9); NEUTROPHILS % (AUTO) 47.7 % (43.0-81.0); PLATELET COUNT (AUTO) 193 /CMM (150-450); WHITE BLOOD COUNT (AUTO) 4.8 K/uL (4.3-11.0)
[2020-04-10] MEDS: SERTRALINE HCL 25 MG TABLET PO SCH (09:00)
[2020-04-10] MEDS: PROPRANOLOL HCL 10 MG TABLET PO SCH (09:00)
[2020-04-10] MEDS: GABAPENTIN 100 MG CAPSULE PO SCH (09:00)
[2020-04-10] MEDS: MEGESTROL ACETATE 40 MG TABLET PO SCH (09:00)
[2020-04-10] MEDS: HYDROXYCHLOROQUINE 200 MG TABLET PO SCH ×2 (09:00→17:50)
[2020-04-10 09:02] LABS: CALCIUM, SERUM 7.9 mg/dL (8.5-10.1); CREATININE 1.1 mg/dL (0.6-1.3); PHOSPHORUS 3.5 mg/dL (2.5-4.9); POTASSIUM 3.6 mmol/L (3.5-5.1)
[2020-04-10] MEDS: CEFTRIAXONE 1 G in IV D5W 50 ML IV SCH (17:45)
--- NOTE | 2020-04-10 18:37 | NUR ---
RN Closing Note Patient is in bed resting, remains awake and oriented to person, confuse, able to responds all stimuli. Patient done CT head today. Skin is warm to touch, keep clean/dry, intact IV site on right AC 20g running NS 75ml/hr. Respiratory even and unlabored on room air O2sat 98%, no distress observed. Keep locked bed with lowest portion and elevated HOB for ensure airway and aspiration precaution, bed alarm on at all times for safety. Call light within reach, will endorse body trimmer.
--- NOTE | 2020-04-10 19:00 | NUR ---
RECEIVED IN BED AWAKE AND CONFUSED TAKING OFF HER CLOTHES AND MUMMBLING INCOHERTENLY. SHE IS NOT ABLE TO COMPREHEND DIRECTIONS BED ALARM ON
[2020-04-10 20:00] VITALS: BP 141/105
--- NOTE | 2020-04-11 04:15 | NUR ---
CLOSING NOTES: FELL ASLEEP AT MIDNIGHT. RESP EVEN AND UNLABORED. MD Nati BIANCHI IS CONFUSED AND MUMMBLE WHEN AWAKE. NOT ABLE TO FOLLOW DIRECTIONS OR UNDERSTANDING WHAT IS GOING ON
--- NOTE | 2020-04-11 07:24 | NUR ---
MS RN OPENING NOTES RECEIVED PATIENT IN BED, AWAKE, A/O X0, CONFUSED. PATIENT ON ROOM AIR; BREATHING IS EVEN AND UNLABORED; NO SOB NOTED AT THIS TIME. NO S/S OF PAIN SUCH MOANING, FACIAL GRIMACING OR GUARDING. RFA IV ACCESS G # 20 PRESENT AND INTACT INFUSING NS @ 75 MLS/HR. SAFETY PRECAUTIONS IN PLACE; BED IN LOW POSITION AND LOCKED, BED ALARM ON, RAILS UP X2, CALL LIGHT WITHIN REACH. WILL CONTINUE TO MONITOR PATIENT.
[2020-04-11 07:42] LABS: BASOPHILS % (AUTO) 0.8 % (0.0-2.0); HEMATOCRIT 29 % (33-45); LYMPHOCYTES # (AUTO) 2.2 /CMM (0.8-4.8); LYMPHOCYTES % (AUTO) 43.5 % (20.0-44.0); MEAN CORPUSCULAR HGB CONC 34 g/dl (31.0-36.0); MEAN CORPUSCULAR VOLUME 94 fL (82-100); MONOCYTES # (AUTO) 0.4 /CMM (0.1-1.30); MONOCYTES % (AUTO) 8.1 % (2.0-12.0); NEUTROPHILS # (AUTO) 2.4 /CMM (1.8-8.9); NEUTROPHILS % (AUTO) 47.6 % (43.0-81.0); PLATELET COUNT (AUTO) 255 /CMM (150-450)
[2020-04-11 08:00] VITALS: BP 127/93
[2020-04-11 08:06] LABS: CREATININE 1.1 mg/dL (0.6-1.3); MAGNESIUM 1.8 mg/dL (1.8-2.4); POTASSIUM 3.7 mmol/L (3.5-5.1)
[2020-04-11] MEDS: GABAPENTIN 100 MG CAPSULE PO SCH (08:32)
[2020-04-11] MEDS: HYDROXYCHLOROQUINE 200 MG TABLET PO SCH ×2 (08:33→16:50)
[2020-04-11] MEDS: PROPRANOLOL HCL 10 MG TABLET PO SCH (08:33)
[2020-04-11] MEDS: SERTRALINE HCL 25 MG TABLET PO SCH (08:33)
[2020-04-11] MEDS: MEGESTROL ACETATE 40 MG TABLET PO SCH (08:33)
[2020-04-11] MEDS: ENSURE ENLIVE CHOC 237 ML CAN PO SCH (14:19)
[2020-04-11 16:00] VITALS: BP 130/76
[2020-04-11] MEDS: CEFTRIAXONE 1 G in IV D5W 50 ML IV SCH (16:35)
--- NOTE | 2020-04-11 18:41 | NUR ---
MS RN CLOSING NOTES PATIENT IN BED, AWAKE, A/O X0, CONFUSED. PATIENT ON ROOM AIR; BREATHING IS EVEN AND UNLABORED; NO SOB NOTED DURING THE SHIFT. NO S/S OF PAIN SUCH MOANING, FACIAL GRIMACING OR GUARDING. LFA IV ACCESS G # 20 PRESENT AND INTACT INFUSING NS @ 75 MLS/HR. ALL NEEDS ATTENDED THROUGHOUT THE DAY. SAFETY PRECAUTIONS IN PLACE; BED IN LOW POSITION AND LOCKED, BED ALARM ON, RAILS UP X2, CALL LIGHT WITHIN REACH. WILL ENDORSE TO OUTSOLE SCHEDULER NURSE.
[2020-04-11] MEDS: IV NS 0.9% 1,000 ML IV PRN (19:29)
--- NOTE | 2020-04-11 20:05 | NUR ---
RECEIVED PATIENT IN BED ALERT TO SELF CONFUSED NOT ABLE TO FOLLOW DIRECTIONS PULLING OFF HER GOWN AND THE BEDCOVERS MUMMBLING WORDS TURNED TV ON FOR HER TO TRY TO ORIENTATE HER AND CALM HER DOWN
[2020-04-11 20:25] VITALS: BP 129/82
[2020-04-11 20:35] VITALS: BP 129/82
[2020-04-11] MEDS: ENOXAPARIN SODIUM 30 MG/0.3 ML DISP.SYRIN SQ SCH (23:39)
--- NOTE | 2020-04-12 06:33 | NUR ---
confused this 12 hours removed iv 1 x reinserted she is not able to follow directions' she is alert to self oincont freg swallow wo problems afebrile this 12 hours
--- NOTE | 2020-04-12 07:37 | NUR ---
MS RN OPENING NOTE PATIENT IN BED RESTING COMFORTABLY. PATIENT IN NO ACUTE DISTRESS. NO SOB NOTED. PATIENT BREATHING IS EVEN AND UNLABORED. PATIENT BED ALARM IS ON. SAFETY PRECAUTIONS IN PLACE. PATIENT BED IS LOCKED AND IN LOWEST POSITION. CALL LIGHT WITHIN REACH. WILL CONTINUE TO MONITOR.
[2020-04-12 07:40] LABS: BASOPHILS % (AUTO) 0.6 % (0.0-2.0); HEMATOCRIT 33 % (33-45); LYMPHOCYTES # (AUTO) 2.2 /CMM (0.8-4.8); LYMPHOCYTES % (AUTO) 35.9 % (20.0-44.0); MEAN CORPUSCULAR HGB CONC 34 g/dl (31.0-36.0); MEAN CORPUSCULAR VOLUME 96 fL (82-100); MONOCYTES # (AUTO) 0.5 /CMM (0.1-1.30); MONOCYTES % (AUTO) 7.9 % (2.0-12.0); NEUTROPHILS # (AUTO) 3.5 /CMM (1.8-8.9); NEUTROPHILS % (AUTO) 55.6 % (43.0-81.0); PLATELET COUNT (AUTO) 324 /CMM (150-450); RED BLOOD CELL COUNT(AUTO) 3.42 MIL/uL (4.0-5.2); WHITE BLOOD COUNT (AUTO) 6.3 K/uL (4.3-11.0)
[2020-04-12 08:07] LABS: CALCIUM, SERUM 7.8 mg/dL (8.5-10.1); CREATININE 1.1 mg/dL (0.6-1.3); MAGNESIUM 1.8 mg/dL (1.8-2.4); POTASSIUM 3.1 mmol/L (3.5-5.1)
[2020-04-12] MEDS: POTASSIUM CHLORIDE 20 MEQ TAB.PRT.SR PO SCH ×2 (08:28→11:54)
[2020-04-12] MEDS: ENSURE ENLIVE CHOC 237 ML CAN PO SCH (08:28)
[2020-04-12 08:29] VITALS: BP 111/61
[2020-04-12] MEDS: HYDROXYCHLOROQUINE 200 MG TABLET PO SCH ×2 (08:29→17:07)
[2020-04-12] MEDS: PROPRANOLOL HCL 10 MG TABLET PO SCH (08:29)
[2020-04-12] MEDS: GABAPENTIN 100 MG CAPSULE PO SCH (08:29)
[2020-04-12] MEDS: SERTRALINE HCL 25 MG TABLET PO SCH (08:29)
[2020-04-12] MEDS: MEGESTROL ACETATE 40 MG TABLET PO SCH (08:29)
[2020-04-12] MEDS ORDERED: CEPH500C2 PO (17:24)
[2020-04-12] MEDS ORDERED: CEPHALEXIN MONOHYDRATE 500 MG CAPSULE PO SCH (18:00)
--- NOTE | 2020-04-12 18:13 | NUR ---
MS RN NOTE PATIENT SKIN ASSESSED, NOTED WITH HEMATOMA ON RIGHT AND LEFT ARM DUE TO PREVIOUS IV INSERTION AND REMOVALS. PICTURES TAKEN AND IN CHART.
--- NOTE | 2020-04-12 18:57 | NUR ---
MS RN CLOSING NOTE PATIENT IN BED RESTING COMFORTABLY. PATIENT IN NO ACUTE DISTRESS. NO SOB NOTED. PATIENT BREATHING IS EVEN AND UNLABORED. PATIENT TO BE PICKED UP DAUGHTER AT 2000 ACCORDING TO DAUGHTER. DISCHARGED ORDER IS IN PLACE. DC INSTRUCTIONS PROVIDED TO DAUGHTER DUE TO PATIENT UNABLE TO COMPREHEND. PATIENTS DAUGHTER VERBALIZED UNDERSTANDING. PATIENT KEPT CLEAN, DRY, AND COMFORTABLE THROUGHOUT SHIFT. PATIENT BELONGINGS AT THE BEDSIDE, BELONGINGS LIST AND DC PAPERWORK SIGNED BY TWO NURSES. MD AWARE OF DISCHARGE. PATIENTS DAUGHTER REFUSING TO HAVE PATIENT RECEIVE FLU VACCINE SHOT AND PNEUMOCOCCAL VACCINE SHOT. WILL ENDORSE DISCHARGE TO SHIP SELF DEFENSE SYSTEM MK1 OPERATOR. PATIENT BED ALARM IS ON. SAFETY PRECAUTIONS IN PLACE. PATIENT BED IS LOCKED AND IN LOWEST POSITION. CALL LIGHT WITHIN REACH. WILL ENDORSE CARE TO PM SHIFT FOR RUDDY.
--- NOTE | 2020-04-12 20:15 | NUR ---
MS RN NOTE: PATIENT TO BE DISCHARGE TONIGHT BACK HOME WITH FAMILY. DISCHARGE PAPERWORK COMPLETED AND SIGNED DURING DAYSHIFT. IV REMOVED ALREADY. DAUGHTER DOWNSTAIRS TO DISPATCHER MOTOR VEHICLE PATIENT. PATIENT WHEELED DOWNSTAIRS WITH PATCHER BOWLING BALL WITH BELONGINGS IN STABLE CONDITION.
== END 2020-04-12 20:27 | disposition home or self-care (01) | DRG 689 ==
LOC: ER 21:13 → MED 04-10 00:15
PROVIDERS: ADMIT Internal Medicine; ATTEND Internal Medicine
DX: N39.0 Urinary tract infection, site not specified (principal); E43 Unspecified severe protein-calorie malnutrition; G93.41 Metabolic encephalopathy; F03.91 Unspecified dementia, unspecified severity, with behavioral disturbance; R64 Cachexia; E88.09 Other disorders of plasma-protein metabolism, not elsewhere classified; Z68.21 Body mass index [BMI] 21.0-21.9, adult; E86.0 Dehydration; D63.8 Anemia in other chronic diseases classified elsewhere; F41.9 Anxiety disorder, unspecified; G62.9 Polyneuropathy, unspecified; G89.29 Other chronic pain; E11.42 Type 2 diabetes mellitus with diabetic polyneuropathy; M19.90 Unspecified osteoarthritis, unspecified site; I10 Essential (primary) hypertension; B96.1 Klebsiella pneumoniae [K. pneumoniae] as the cause of diseases classified elsewhere; Z79.84 Long term (current) use of oral hypoglycemic drugs
CPT/HCPCS: 36415; 70450-TC; 71045-TC; 80048-TC; 80076-TC; 81000-TC; 83735-TC; 84100-TC; 85025-TC; 85027-TC; 87081-TC; 87086-TC; 87186-TC; 97110-TC; 97530-TC; 97535-TC; C9803-CS; G0378; G0480; J0696; J1630; J1650; J2060; J7030; J7060

== ENCOUNTER 2020-11-20 08:56 | Emergency (ER) | payer MEDICARE, OTHER ==
[~2020-11-20] VITALS: Ht 167.6 cm; Wt 61.2 kg
[~2020-11-20 08:56] MED LIST changes: +CEPH500C2 PO; -METF-835 PO; +METF-867 PO; +SERT-437 PO; -SERT25TA5 PO; -VANC125C11 PO
--- NOTE | 2020-11-20 09:10 | NUR ---
BIBRA 102 FROM HOME C/O R SIDED CHEST PAIN STARTED 5AM. NO INJURY OR FALL PER EMS. PATIENT APPEARS TO HAVE BACK PAIN SHE'S POINTING ON HER BACK. PLACED ON THE MONITOR.
--- NOTE | 2020-11-20 09:15 | NUR ---
IV LINE ESTABLISHED BLOOD DRAWN AND SENT TO LAB.
[2020-11-20 09:22] LABS: BASOPHILS # (AUTO) 0.1 /CMM (0.0-0.2); EOSINOPHILS % (AUTO) 0.2 % (0.0-6.0); HEMATOCRIT 33 % (33-45); HEMOGLOBIN 10.9 g/dL (11.5-14.8); LYMPHOCYTES # (AUTO) 1.7 /CMM (0.8-4.8); LYMPHOCYTES % (AUTO) 22.7 % (20.0-44.0); MEAN CORPUSCULAR HGB CONC 33 g/dl (31.0-36.0); MEAN CORPUSCULAR VOLUME 92 fL (82-100); MONOCYTES # (AUTO) 0.7 /CMM (0.1-1.30); NEUTROPHILS # (AUTO) 5.1 /CMM (1.8-8.9); NEUTROPHILS % (AUTO) 67.1 % (43.0-81.0); PLATELET COUNT (AUTO) 288 /CMM (150-450); RED BLOOD CELL COUNT(AUTO) 3.58 MIL/uL (4.0-5.2); WHITE BLOOD COUNT (AUTO) 7.6 K/uL (4.3-11.0)
[2020-11-20 09:33] LABS: CARBON DIOXIDE 25 mmol/L (21-32); CHLORIDE 101 mmol/L (98-107); CREATININE 1.4 mg/dL (0.6-1.3); GLUCOSE 102 mg/dL (74-106); POTASSIUM 3.6 mmol/L (3.5-5.1); SODIUM SERUM 137 mmol/L (136-145); UREA NITROGEN, BLOOD 22 mg/dL (7-18)
[2020-11-20 09:37] LABS: CALCIUM, SERUM 8.7 mg/dL (8.5-10.1)
--- NOTE | 2020-11-20 09:55 | NUR ---
COVID SWAB SENT.
--- NOTE | 2020-11-20 09:57 | NUR ---
DAUGHTER AT BEDSIDE.
[2020-11-20] MEDS ORDERED: TEMA15CA PO (10:01)
[2020-11-20] MEDS ORDERED: QUET25TA PO (10:01)
[2020-11-20] MEDS ORDERED: TRAZ-257 PO (10:01)
[2020-11-20] MEDS ORDERED: METO-357 PO (10:01)
[2020-11-20] MEDS ORDERED: HYDR-3980 PO (10:02)
[2020-11-20] MEDS ORDERED: NITR100C6 PO (10:22)
--- NOTE | 2020-11-20 10:50 | NUR ---
PATIENT'S DAUGHTER REFUSED TO HAVE HER ADMITTED IN THE HOSPITAL. SHE WANTS TO TAKE HER HOME. DR. SIMPSON MADE AWARE. PATIENT IS ASLEEP AT THIS TIME.
--- NOTE | 2020-11-20 10:59 | NUR ---
CALLED [facility]ORT [facility] ETA [phone]
--- NOTE | 2020-11-20 11:08 | NUR ---
LAB CALLED PT COVID RESULT NEGATIVE (-)
--- NOTE | 2020-11-20 11:25 | NUR ---
IV removed. Catheter intact and site benign. Pressure and 4x4 applied to site. No bleeding noted. Patient discharged to home in stable condition. Written and verbal after care instructions given to daughter and verbalizes understanding of instruction.
[2020-11-20 11:27] VITALS: BP 115/69
== END 2020-11-20 11:27 | disposition home or self-care (01) ==
LOC: ER 09:01
DX: G89.29 Other chronic pain (principal); M54.9 Dorsalgia, unspecified; I45.10 Unspecified right bundle-branch block; I10 Essential (primary) hypertension; R07.9 Chest pain, unspecified; Z20.822 Contact with and (suspected) exposure to COVID-19; Z79.899 Other long term (current) drug therapy
CPT/HCPCS: 36415; 71045-TC; 80048-TC; 84484-TC; 85025-TC; C9803

== ENCOUNTER 2022-05-25 18:17 | Inpatient (IN) | payer MEDICARE, OTHER ==
[~2022-05-25] VITALS: Ht 165.1 cm; Wt 52.2 kg
[~2022-05-25 18:17] MED LIST changes: -CEPH500C2 PO; -ESOM40CA52 PO; +HYDR-3980 PO; -HYDR200T4 PO; -MEGE40TA5 PO; -METF-867 PO; +METO-357 PO; -METR500P3 IV; +NITR100C6 PO; -OXYC1TAB8 PO; -PROP10TA68 PO; +QUET25TA PO; -REPA2TAB10 PO; -SERT-437 PO; +TEMA15CA PO; +TRAZ-257 PO; -VALSARTAN-HCTZ PO
--- NOTE | 2022-05-25 18:20 | NUR ---
REceived pt 86 yrs female came from home by neema more weeek and awake and confused and screaming
[2022-05-25] MEDS ORDERED: LORAZEPAM INJ 2 MG/ML VIAL ONE ×2 (18:45→20:01)
--- NOTE | 2022-05-25 18:52 | NUR ---
SALINE LOCK ESTABLISHED, BLOOD DRAWN, AND SENT TO LAB
[2022-05-25] MEDS ORDERED: LORAZEPAM INJ 2 MG/ML VIAL IV ONE ×2 (19:00→20:00)
--- NOTE | 2022-05-25 19:04 | NUR ---
X-RAY DONE AT BED SIDE
--- NOTE | 2022-05-25 19:31 | NUR ---
HAND OFF CLAUDIA WONG
[2022-05-25 19:35] LABS: CALCIUM, SERUM 9.1 mg/dL (8.5-10.1); CARBON DIOXIDE 24 mmol/L (21-32); CHLORIDE 104 mmol/L (98-107); CREATININE 1.7 mg/dL (0.6-1.3); GLUCOSE 88 mg/dL (74-106); POTASSIUM 4.8 mmol/L (3.5-5.1); SODIUM SERUM 136 mmol/L (136-145); UREA NITROGEN, BLOOD 31 mg/dL (7-18)
[2022-05-25 19:47] LABS: ALANINE AMINOTRANSFERASE 10 U/L (12-78); ALBUMIN 3.5 g/dL (3.4-5.0); ALKALINE PHOSPHATASE 101 U/L (46-116); ASPARTATE AMINOTRANSFERASE 15 U/L (15-37); BILIRUBIN,DIRECT 0.1 mg/dL (0.0-0.2); BILIRUBIN,TOTAL 0.3 mg/dL (0.2-1.0); TOTAL PROTEIN, SERUM 7.7 g/dL (6.4-8.2)
[2022-05-25 20:14] LABS: BASOPHILS % (AUTO) 0.4 % (0.0-2.0); HEMATOCRIT 30 % (33-45); HEMOGLOBIN 10.1 g/dL (11.5-14.8); LYMPHOCYTES # (AUTO) 2.9 K/uL (0.8-4.8); LYMPHOCYTES % (AUTO) 36.2 % (20.0-44.0); MEAN CORPUSCULAR HGB CONC 33 g/dl (31.0-36.0); MEAN CORPUSCULAR VOLUME 93 fL (82-100); MONOCYTES # (AUTO) 0.8 K/uL (0.1-1.30); MONOCYTES % (AUTO) 9.6 % (2.0-12.0); NEUTROPHILS # (AUTO) 4.3 K/uL (1.8-8.9); NEUTROPHILS % (AUTO) 53.8 % (43.0-81.0); PLATELET COUNT (AUTO) 324 K/uL (150-450); RED BLOOD CELL COUNT(AUTO) 3.26 MIL/uL (4.0-5.2)
--- NOTE | 2022-05-25 21:40 | NUR ---
PT TAKEN TO CT VIA [facility]
--- NOTE | 2022-05-25 22:00 | NUR ---
PT RETURNED FROM CT
--- NOTE | 2022-05-25 23:05 | NUR ---
COVID SWAB COLLECTED
--- NOTE | 2022-05-25 23:27 | NUR ---
[facility] PAGED
[2022-05-25] MEDS ORDERED: MORPHINE SULFATE INJ 2 MG/ML DISP.SYRIN IV ONE (23:30)
[2022-05-25] MEDS ORDERED: MORPHINE SULFATE INJ 4 MG/ML DISP.SYRIN ONE (23:44)
[2022-05-26] MEDS ORDERED: MAG HYDROX/AL HYDROX/SIMETH 30 ML UDC PO PRN
[2022-05-26] MEDS ORDERED: MAGNESIUM HYDROXIDE 30 ML UDC PO PRN
[2022-05-26] MEDS ORDERED: ONDANSETRON HCL/PF 4 MG/2 ML VIAL IVP PRN
[2022-05-26] MEDS ORDERED: Z GUARD REMEDY 4 OZ OINT TP PRN
--- NOTE | 2022-05-26 00:24 | NUR ---
GRANDNIYA BLUNT: [phone] SISTER DEREK: [phone]
--- NOTE | 2022-05-26 01:41 | NUR ---
MS 310-2
[2022-05-26] MEDS ORDERED: CEFEPIME 1 GM in IV D5W 50 ML IV ONE (02:00)
--- NOTE | 2022-05-26 02:36 | NUR ---
REPORT GIVEN TO RR
--- NOTE | 2022-05-26 03:20 | NUR ---
FOUNTAIN VENDING MECHANIC NOTES RECEIVED PATIENT FROM ER VIA [facility] WITH RN AND PROSTHODONTIST. A/0 X1, UZBEK SPEAKING. NO AVAILABLE UZBEK GLOST PLACER AT THIS TIME. BREATHING ON ROOM AIR, EVEN AND UNLABORED. NO SIGNS OF DISTRESS NOTED. WITH IV ACCESS AT LEFT FA #20, FLUSHING WELL. ORIENTE DTO ROOM AIR. SAFETY PRECAUTIONS INITIATED, BED LOWERED AND LOCKED. WILL CONTINUE TO MONITOR.
[2022-05-26] MEDS: IV NS 0.9% 1,000 ML IV SCH ×2 (03:43→13:52)
[2022-05-26] MEDS ORDERED: CEFEPIME 1 GM VIAL ONE (05:32)
[2022-05-26] MEDS: ACETAMINOPHEN 325 MG TABLET PO PRN ×3 (05:38→15:07)
--- NOTE | 2022-05-26 05:45 | NUR ---
RN NOTES PATIENT IS COMPLAINING OF GENERALIZED PAIN, SCREAMING AND CRYING. REFUSED TYLENOL 650MG. GIVEN MORPHINE 2MG INSTEAD.
[2022-05-26] MEDS: MORPHINE SULFATE INJ 2 MG/ML DISP.SYRIN IV PRN ×2 (05:48→11:27)
--- NOTE | 2022-05-26 06:12 | NUR ---
THE PATIENT IS SHOUTING AND RESTLESS. PULLED OUT HER IV. PLACED PRESSURE DRESSING. NO BLEEDING. KEPT COMFORTABLE.
[2022-05-26] MEDS ORDERED: CEFEPIME 2 GM in IV D5W 100 ML IV ONE (06:30)
[2022-05-26 06:52] VITALS: BP 120/78
--- NOTE | 2022-05-26 07:30 | NUR ---
RN NOTES RECEIVED PATIENT AWAKE IN BED ANXIOUS AND CONFUSED. ALERT AND ORIENTED TIMES 1. ABLE TO MAKE NEEDS KNOWN . SCOTTISH SPEAKER. TRYING TO COMFORT THE PATIENT WITH HYDRATION, SNACKS AND REPOSITIONING. TYLENOL GIVEN FOR COMFORT. NO IV SITE. PATIENT REMOVED IV . NO IV ACCESS. NO SOB NOTED. ON ROOM AIR TOLERATI NG WELL. NO DISTRESS NOTED. ALL SAFETY MEASURES IN PLACE. BED LOCKED IN THE LOWEST POSITION. CALL LIGHT AND TABLE IN EASY REACH. SIDE RAILS UP TIMES 2. BED ALARM ON. TABLE AND CALL LIGHT IN EASY REACH. WILL CONTINUE TO MONITOR CLOSELY.
--- NOTE | 2022-05-26 07:36 | NUR ---
RN CLOSING NOTES PATIENT IS LYING AWAKE. A/0 X1, CONFUSED AND AGITATED, KOREAN SPEAKING. BREATHING ON ROOM AIR, EVEN AND UNLABORED. NO IV ACCESS AT THIS TIME. KEPT COMFORTABLE. SAFETY PRECAUTIONS INITIATED, BED LOWERED AND LOCKED. CALL LIGHT WITHIN REACH. WILL CONTINUE TO MONITOR.
[2022-05-26 08:00] VITALS: BP 129/69
[2022-05-26] MEDS ORDERED: OMEP20CA15 PO (09:07)
[2022-05-26] MEDS ORDERED: ESCI10TA PO (09:07)
[2022-05-26] MEDS ORDERED: PROP10TA68 PO (09:07)
[2022-05-26] MEDS ORDERED: METO-357 PO (09:17)
[2022-05-26 09:30] LABS: BASOPHILS % (AUTO) 0.7 % (0.0-2.0); HEMATOCRIT 31 % (33-45); HEMOGLOBIN 10.2 g/dL (11.5-14.8); LYMPHOCYTES # (AUTO) 2.5 K/uL (0.8-4.8); LYMPHOCYTES % (AUTO) 35.7 % (20.0-44.0); MEAN CORPUSCULAR HGB CONC 33 g/dl (31.0-36.0); MEAN CORPUSCULAR VOLUME 93 fL (82-100); MONOCYTES # (AUTO) 0.6 K/uL (0.1-1.30); MONOCYTES % (AUTO) 8.2 % (2.0-12.0); NEUTROPHILS # (AUTO) 3.9 K/uL (1.8-8.9); NEUTROPHILS % (AUTO) 55.4 % (43.0-81.0); PLATELET COUNT (AUTO) 314 K/uL (150-450); RED BLOOD CELL COUNT(AUTO) 3.29 MIL/uL (4.0-5.2)
[2022-05-26 09:47] LABS: ALANINE AMINOTRANSFERASE 12 U/L (12-78); ALBUMIN 3.4 g/dL (3.4-5.0); ALKALINE PHOSPHATASE 85 U/L (46-116); ASPARTATE AMINOTRANSFERASE 17 U/L (15-37); BILIRUBIN,TOTAL 0.5 mg/dL (0.2-1.0); CARBON DIOXIDE 27 mmol/L (21-32); CHLORIDE 104 mmol/L (98-107); CREATININE 1.5 mg/dL (0.6-1.3); GLUCOSE 90 mg/dL (74-106); MAGNESIUM 2.1 mg/dL (1.8-2.4); PHOSPHORUS 3.3 mg/dL (2.5-4.9); POTASSIUM 4.6 mmol/L (3.5-5.1); SODIUM SERUM 137 mmol/L (136-145); TOTAL PROTEIN, SERUM 7.5 g/dL (6.4-8.2); UREA NITROGEN, BLOOD 28 mg/dL (7-18)
[2022-05-26] MEDS: HEPARIN SODIUM, PORCINE 5000 UNITS/1 ML VIAL SQ SCH ×2 (10:12→21:36)
[2022-05-26] MEDS ORDERED: PROPRANOLOL HCL 10 MG TABLET PO PRN (12:30)
[2022-05-26] MEDS: HYDROCODONE/APAP 10/325MG TABLET PO PRN (13:00)
[2022-05-26 15:54] VITALS: BP 150/79
[2022-05-26] MEDS: QUETIAPINE FUMARATE 100 MG TABLET PO SCH (16:34)
[2022-05-26] MEDS ORDERED: QUETIAPINE FUMARATE 25 MG TABLET PO SCH (17:00)
[2022-05-26] MEDS: ESCITALOPRAM OXALATE (10 MG) 10 MG TABLET PO SCH (17:34)
--- NOTE | 2022-05-26 18:42 | NUR ---
MS RN CLOSING NOTES PATIENT IN BED RESTING. ALERT AND ORIENTED TIMES 1. ABLE TO MAKE NEEDS KNOWN . WELSH SPEAKER. NO PAIN NOTED. NO SOB NOTED. ON ROOM AIR TOLERATI NG WELL. NO DISTRESS NOTED.IV ACCESS ON THE RIGHT AC g # 20 INTACRT RUNNING NS AT 75 ML/HR.ALL DUE MEDS GIVEN ORDERED. ALL SAFETY MEASURES IN PLACE. NPO FROM MIDNIGHT FOR MRCP IN THE AM.BED LOCKED IN THE LOWEST POSITION. CALL LIGHT AND TABLE IN EASY REACH. SIDE RAILS UP TIMES 2. BED ALARM ON. TABLE AND CALL LIGHT IN EASY REACH. WILL ENDORSE FOR RUDDY..
--- NOTE | 2022-05-26 19:40 | NUR ---
RN OPENING NOTES RECEIVED PT IN BED, ASLEEP, AWAKENS TO VERBAL STIMULI, WITH CAREGIVER AT BEDSIDE. AOx1, BENGALI SPEAKING AND TRANSLATED BY RN DANIELA. ON RA AND TOLERATING WELL. NO SOB NOTED. NO S/SX OF RESPIRATORY DISTRESS NOTED. IV ACCESS IN RAC #20G RUNNING NS @ 75 ML/HR. SAFETY PRECAUTIONS IN PLACE: BED IN LOWEST, LOCKED POSITION, SIDERAILS UPx2, AND BRAKES ON. TABLE AND CALL LIGHT WITHIN REACH. ALL NEEDS MET AT THIS TIME.
[2022-05-26 20:00] VITALS: BP 125/59
[2022-05-26] MEDS: TEMAZEPAM 15 MG CAPSULE PO SCH (21:34)
[2022-05-27] MEDS: CEFEPIME 1 GM in IV D5W 50 ML IV SCH (05:30)
--- NOTE | 2022-05-27 06:43 | NUR ---
RN CLOSING NOTES PT IN BED, AWAKE WITH CAREGIVER AT BEDSIDE. AOx1, CONFUSED PER CAREGIVER.ON RA AND TOLERATING WELL. NO SOB NOTED. NO S/SX OF RESPIRATORY DISTRESS NOTED. IV ACCESS IN ALETA #20G RUNNING NS @ 75 ML/HR. ALL ORDERS CARRIED OUT. ALL NEEDS MET. PT KEPT CLEAN AND DRY. SAFETY PRECAUTIONS IN PLACE: BED IN LOWEST, LOCKED POSITION, SIDERAILS UPx2, AND BRAKES ON. TABLE AND CALL LIGHT WITHIN REACH. WILL ENDORSE TO ONCOMING SHIFT FOR RUDDY.
[2022-05-27] MEDS: PANTOPRAZOLE 40 MG/PACK PACK PO SCH (06:49)
[2022-05-27 07:30] LABS: ALBUMIN 3.2 g/dL (3.4-5.0); BILIRUBIN,TOTAL 0.3 mg/dL (0.2-1.0); CALCIUM, SERUM 8.9 mg/dL (8.5-10.1); CREATININE 1.3 mg/dL (0.6-1.3); MAGNESIUM 2.2 mg/dL (1.8-2.4); PHOSPHORUS 3.3 mg/dL (2.5-4.9); POTASSIUM 4.1 mmol/L (3.5-5.1); TOTAL PROTEIN, SERUM 7.3 g/dL (6.4-8.2)
[2022-05-27 07:53] LABS: BASOPHILS % (AUTO) 0.8 % (0.0-2.0); HEMATOCRIT 32 % (33-45); HEMOGLOBIN 10.4 g/dL (11.5-14.8); LYMPHOCYTES # (AUTO) 1.9 K/uL (0.8-4.8); LYMPHOCYTES % (AUTO) 34.2 % (20.0-44.0); MEAN CORPUSCULAR HGB CONC 33 g/dl (31.0-36.0); MEAN CORPUSCULAR VOLUME 93 fL (82-100); MONOCYTES # (AUTO) 0.4 K/uL (0.1-1.30); MONOCYTES % (AUTO) 7.3 % (2.0-12.0); NEUTROPHILS # (AUTO) 3.3 K/uL (1.8-8.9); NEUTROPHILS % (AUTO) 57.7 % (43.0-81.0); PLATELET COUNT (AUTO) 284 K/uL (150-450); RED BLOOD CELL COUNT(AUTO) 3.39 MIL/uL (4.0-5.2); WHITE BLOOD COUNT (AUTO) 5.7 K/uL (4.3-11.0)
[2022-05-27 08:00] VITALS: BP 93/57
[2022-05-27] MEDS: HEPARIN SODIUM, PORCINE 5000 UNITS/1 ML VIAL SQ SCH ×2 (09:00→21:27)
[2022-05-27] MEDS: QUETIAPINE FUMARATE 100 MG TABLET PO SCH ×2 (09:19→17:54)
[2022-05-27] MEDS: METOPROLOL SUCCINATE 50 MG TAB.SR.24H PO SCH (09:20)
[2022-05-27] MEDS: HYDROCODONE/APAP 10/325MG TABLET PO PRN (09:20)
[2022-05-27] MEDS ORDERED: QUETIAPINE FUMARATE 100 MG TABLET PO ONE (12:00)
[2022-05-27 16:00] VITALS: BP 149/90
[2022-05-27] MEDS: ESCITALOPRAM OXALATE (10 MG) 10 MG TABLET PO SCH (17:54)
[2022-05-27] MEDS: MORPHINE SULFATE INJ 2 MG/ML DISP.SYRIN IV PRN (18:06)
--- NOTE | 2022-05-27 18:29 | NUR ---
RN CLOSING NOTE PATIENT RECEIVED ON SHIFT IN BED AND AWAKE. A/OX1 WITH CONFUSION; UNABLE TO VERBALIZE NEEDS PROPERLY. IV ACCESS TO ALETA INTACT AND PATENT WITH NO S/SX OF TRAUMA OR BLEEDING. PATIENT HAD CONTINUOUS MOANING AND YELLING "PAIN" IN [facility]. RECEIVED NORCO @ 0920 & MORPHINE @ 1806. MEDICATION EFFECTIVE. PATIENT TAKEN FOR SCHEDULED MRCP @ 1340, HOWEVER PROCEDURE WAS NOT SUCCESSFUL DUE PATIENT BEING NONCOOPERATIVE. PROCEDURE RESCHEDULED FOR MONDAY 05/28 IN AM. WILL ENDORSE TO ONCOMING NURSE. DIET ADVANCED FROM NPO TO REGULAR UNTIL MIDNIGHT. CAREGIVER AT PATIENT BEDSIDE THROUGHOUT SHIFT. SAFETY MEASURES INTACT WITH BED LOW AND LOCKED. CALL LIGHT WITHIN REACH. WILL CONT TO MONITOR.
--- NOTE | 2022-05-27 19:36 | NUR ---
RN OPENING NOTES RECEIVED PT IN BED, ASLEEP, AWAKENS TO VERBAL STIMULI, WITH CAREGIVER AT BEDSIDE. AOx1, INDONESIAN SPEAKING. ON RA AND TOLERATING WELL. NO SOB NOTED. NO S/SX OF RESPIRATORY DISTRESS NOTED. IV ACCESS IN ALETA #20G. IV IS INTACT, PATENT, AND FLUSHING WELL. SAFETY PRECAUTIONS IN PLACE: BED IN LOWEST, LOCKED POSITION, SIDERAILS UPx2, AND BRAKES ON. TABLE AND CALL LIGHT WITHIN REACH. ALL NEEDS MET AT THIS TIME.
[2022-05-27 20:00] VITALS: BP 131/65
[2022-05-27] MEDS: TEMAZEPAM 15 MG CAPSULE PO SCH (22:52)
--- NOTE | 2022-05-27 22:52 | NUR ---
RN NOTES ADMINISTERED TEMAZEPAM PER MD ORDER. VS WNL.
[2022-05-28] MEDS: CEFEPIME 1 GM in IV D5W 50 ML IV SCH (06:17)
[2022-05-28 06:37] LABS: BASOPHILS % (AUTO) 0.2 % (0.0-2.0); EOSINOPHILS % (AUTO) 0.1 % (0.0-6.0); HEMATOCRIT 32 % (33-45); HEMOGLOBIN 10.4 g/dL (11.5-14.8); LYMPHOCYTES # (AUTO) 0.8 K/uL (0.8-4.8); MEAN CORPUSCULAR HGB CONC 33 g/dl (31.0-36.0); MEAN CORPUSCULAR VOLUME 93 fL (82-100); MONOCYTES # (AUTO) 0.4 K/uL (0.1-1.30); NEUTROPHILS % (AUTO) 80.7 % (43.0-81.0); PLATELET COUNT (AUTO) 321 K/uL (150-450); RED BLOOD CELL COUNT(AUTO) 3.43 MIL/uL (4.0-5.2); WHITE BLOOD COUNT (AUTO) 6.2 K/uL (4.3-11.0)
--- NOTE | 2022-05-28 06:42 | NUR ---
RN CLOSING NOTES PT IN BED, AWAKE, WITH CAREGIVER AT BEDSIDE. AOx1, SLOVAK SPEAKING. ON RA AND TOLERATING WELL. NO SOB NOTED. NO S/SX OF RESPIRATORY DISTRESS NOTED. IV ACCESS IN UMBERTO #22G. IV IS INTACT, PATENT, AND FLUSHING WELL. ALL ORDERS CARRIED OUT. ALL NEEDS MET. PT KEPT CLEAN AND DRY. SAFETY PRECAUTIONS IN PLACE: BED IN LOWEST, LOCKED POSITION, SIDERAILS UPx2, AND BRAKES ON. TABLE AND CALL LIGHT WITHIN REACH. WILL ENDORSE TO ONCOMING SHIFT FOR RUDDY.
[2022-05-28 06:54] LABS: CALCIUM, SERUM 8.8 mg/dL (8.5-10.1); CREATININE 1.2 mg/dL (0.6-1.3); MAGNESIUM 2.2 mg/dL (1.8-2.4); PHOSPHORUS 2.4 mg/dL (2.5-4.9); POTASSIUM 3.9 mmol/L (3.5-5.1)
[2022-05-28] MEDS: PANTOPRAZOLE 40 MG/PACK PACK PO SCH (07:30)
[2022-05-28 08:00] VITALS: BP 148/100
[2022-05-28] MEDS: HYDROCODONE/APAP 10/325MG TABLET PO PRN (08:51)
[2022-05-28] MEDS: METOPROLOL SUCCINATE 50 MG TAB.SR.24H PO SCH (08:52)
[2022-05-28] MEDS: QUETIAPINE FUMARATE 100 MG TABLET PO SCH (08:52)
[2022-05-28] MEDS: HEPARIN SODIUM, PORCINE 5000 UNITS/1 ML VIAL SQ SCH (09:00)
[2022-05-28] MEDS ORDERED: NEUTRA PHOS 1 POWD.PACKET PO ONE (12:00)
[2022-05-28] MEDS ORDERED: IBUP-51 PO (15:30)
[2022-05-28] MEDS ORDERED: LIDO700A30 TP (15:30)
[2022-05-28] MEDS ORDERED: DEXL60CA3 PO (15:30)
[2022-05-28 16:00] VITALS: BP 156/75
[2022-05-28] MEDS ORDERED: ENSURE ENLIVE CHOC 237 ML CAN PO SCH (17:00)
--- NOTE | 2022-05-28 17:33 | NUR ---
ORNAMENTER NOTE PATIENT DISCHARGED FROM FACILITY @ 1720. PATIENT TRANSPORTED HOME VIA PRIVATE CAR. ACCOMPANIED BY GRANDSON AND CAREGIVER. IV REMOVED, BELONGINGS ACCOUNTED FOR AND TAKEN WITH PATIENT.
== END 2022-05-28 17:25 | disposition home or self-care (01) | DRG 444 ==
LOC: ER 18:19 → MED 05-26 01:45
PROVIDERS: ADMIT Nurse Practitioner Acute Care; ATTEND Nurse Practitioner Acute Care
DX: K80.20 Calculus of gallbladder without cholecystitis without obstruction (principal); G93.41 Metabolic encephalopathy; I50.33 Acute on chronic diastolic (congestive) heart failure; N17.0 Acute kidney failure with tubular necrosis; M48.54XA Collapsed vertebra, not elsewhere classified, thoracic region, initial encounter for fracture; F03.92 Unspecified dementia, unspecified severity, with psychotic disturbance; I25.10 Atherosclerotic heart disease of native coronary artery without angina pectoris; I11.0 Hypertensive heart disease with heart failure; Z91.81 History of falling; M54.9 Dorsalgia, unspecified; Z79.899 Other long term (current) drug therapy; M40.204 Unspecified kyphosis, thoracic region; Z87.440 Personal history of urinary (tract) infections; G62.9 Polyneuropathy, unspecified; D63.8 Anemia in other chronic diseases classified elsewhere; K83.8 Other specified diseases of biliary tract
CPT/HCPCS: 36415; 71045-TC; 72131-TC; 74181-TC; 76705-TC; 80048-TC; 80053-TC; 80076-TC; 83690-TC; 83735-TC; 83880; 84100-TC; 84484-TC; 85025-TC; 87081-TC; C9803; G0378; J0692; J1644; J2060; J2270; J7030; J7050; J7060

== ENCOUNTER 2022-12-18 23:57 | Emergency (ER) | payer MEDICARE, OTHER ==
[~2022-12-18] VITALS: Ht 165.1 cm; Wt 52.2 kg
[~2022-12-18 23:57] MED LIST changes: +DEXL60CA3 PO; +ESCI10TA PO; -GABA-532 PO; +IBUP-51 PO; +LIDO700A30 TP; -NITR100C6 PO; +OMEP20CA15 PO; +PROP10TA68 PO; -TRAZ-257 PO
--- NOTE | 2022-12-19 00:01 | NUR ---
[id number] FROM HOME, MORE AGITATED THAN USUAL, HX OF DEMENTIA/ALZ. pt to bed 7, awake, alert, not in acute distress. no sob. placed on monitor. vss. pending er provider trav
[2022-12-19] MEDS ORDERED: LORAZEPAM INJ 2 MG/ML VIAL ONE ×4 (00:51→03:18)
[2022-12-19 00:54] LABS: BASOPHILS # (AUTO) 0.1 K/uL (0.0-0.2); EOSINOPHILS % (AUTO) 0.2 % (0.0-6.0); HEMATOCRIT 30 % (33-45); HEMOGLOBIN 10.1 g/dL (11.5-14.8); LYMPHOCYTES # (AUTO) 3.2 K/uL (0.8-4.8); LYMPHOCYTES % (AUTO) 56.5 % (20.0-44.0); MEAN CORPUSCULAR HGB CONC 33 g/dl (31.0-36.0); MEAN CORPUSCULAR VOLUME 92 fL (82-100); MONOCYTES # (AUTO) 0.4 K/uL (0.1-1.30); MONOCYTES % (AUTO) 6.9 % (2.0-12.0); NEUTROPHILS % (AUTO) 35.4 % (43.0-81.0); PLATELET COUNT (AUTO) 268 K/uL (150-450); WHITE BLOOD COUNT (AUTO) 5.7 K/uL (4.3-11.0)
--- NOTE | 2022-12-19 00:54 | NUR ---
pt restless, er doc made aware, unable to go CT at this time. given ativan
[2022-12-19 00:58] LABS: CALCIUM, SERUM 8.7 mg/dL (8.5-10.1); CARBON DIOXIDE 23 mmol/L (21-32); CHLORIDE 106 mmol/L (98-107); CREATININE 1.6 mg/dL (0.6-1.3); GLUCOSE 87 mg/dL (74-106); POTASSIUM 4.4 mmol/L (3.5-5.1); SODIUM SERUM 136 mmol/L (136-145); UREA NITROGEN, BLOOD 30 mg/dL (7-18)
[2022-12-19 01:00] LABS: SERUM AMMONIA 11 umol/L (11-32)
[2022-12-19] MEDS ORDERED: LORAZEPAM INJ 2 MG/ML VIAL IV ONE ×5 (01:00→04:30)
[2022-12-19 01:04] LABS: ALANINE AMINOTRANSFERASE 9 U/L (12-78); ALBUMIN 3.2 g/dL (3.4-5.0); ALKALINE PHOSPHATASE 102 U/L (46-116); ASPARTATE AMINOTRANSFERASE 21 U/L (15-37); BILIRUBIN,DIRECT 0.1 mg/dL (0.0-0.2); BILIRUBIN,TOTAL 0.3 mg/dL (0.2-1.0); TOTAL PROTEIN, SERUM 6.8 g/dL (6.4-8.2)
[2022-12-19 01:05] LABS: ALCOHOL, BLOOD < 3 mg/dL (0-10)
[2022-12-19 02:35] LABS: BILIRUBIN,URINE NEGATIVE (NEGATIVE); COLOR,URINE LIGHT YELLOW (YELLOW); LEUKOCYTE ESTERASE ,URINE TRACE (NEGATIVE); NITRITE, URINE NEGATIVE (NEGATIVE); PH,URINE 8.5 (5.0-8.0); PROTEIN,URINE NEGATIVE (NEGATIVE); UGLUCOSE NEGATIVE (NEGATIVE); UROBILINOGEN,URINE 0.2 EU/dL (0.2)
[2022-12-19 02:51] LABS: BACTERIA,URINE Rare /HPF (None Seen); RBC,URINE 0-2 /HPF (0-2)
[2022-12-19] MEDS ORDERED: MORPHINE SULFATE INJ 4 MG/ML DISP.SYRIN ONE (04:29)
[2022-12-19] MEDS ORDERED: MORPHINE SULFATE INJ 2 MG/ML DISP.SYRIN IV ONE (04:30)
--- NOTE | 2022-12-19 04:30 | NUR ---
given multiple doses of ativan, appears restless. per daughter, pt is c/o pain, requesting pain meds. er doc notified. with orders for morphine.
--- NOTE | 2022-12-19 05:35 | NUR ---
pt taken to CT
--- NOTE | 2022-12-19 05:47 | NUR ---
BACK FROM CT
[2022-12-19] MEDS ORDERED: CEFTRIAXONE 1GM BAG (ER ONLY) 50 ML IV ONE (05:54)
[2022-12-19] MEDS ORDERED: CEFTRIAXONE 1GM BAG (ER ONLY) 1 GM/50 ML PIGGYBACK IV ONE (06:00)
[2022-12-19] MEDS ORDERED: CEPH500C2 PO (07:15)
--- NOTE | 2022-12-19 07:53 | NUR ---
CALLED [facility] FOR TRANSPORT ETA [id number]
--- NOTE | 2022-12-19 09:56 | NUR ---
Patient discharged to home in stable condition. Written and verbal after care instructions given. The daughter verbalizes understanding of instruction. The patient is picked up by ambulance.
[2022-12-19 09:57] VITALS: BP 111/97; TEMP 98.4
== END 2022-12-19 09:57 | disposition home or self-care (01) ==
LOC: ER 23:59
DX: N39.0 Urinary tract infection, site not specified (principal); R45.1 Restlessness and agitation; F03.90 Unspecified dementia, unspecified severity, without behavioral disturbance, psychotic disturbance, mood disturbance, and anxiety; I10 Essential (primary) hypertension; Z79.899 Other long term (current) drug therapy
CPT/HCPCS: 99285; 96365; 96375; 93005; 71045; 96376; 70450; 82140; 85025; 80048; 87086; 80076; 81001; 36415; 84484 ×2; 85730; 80143; 80320; 80307; J2060 ×4; J2270; J0696; G0480